=== PATIENT | female | born 1970 | race Two or more races ===

== ENCOUNTER → 2025-02-05 | Emergency (ER) | payer OTHER ==
[~2025-02-05] VITALS: Ht 167.6 cm; Wt 67.1 kg
[~2025-02-05] MED LIST: ALBUTEROL0.63 MG/3 IH; AMITRIPTYLINE100 MG; AMITRIPTYLINE100 MG PO; CEPHALEXIN500 MG PO; CLONAZEPAM0.5 M1 PO; CLONAZEPAM0.5 MG PO; COLACE100 MG PO; ENALAPRIL MALEAT5 MG PO; JANUMET 50-5001 EACH PO; KETO10TA2 PO; KETOROLAC TROMETHAMINE 60 MG VIAL IM STA; NAPROXEN375 MG PO; PROAIR RESPICL90 MCG; RESTORIL30 M1 PO; RESTORIL30 MG PO; TETANUS & DIPHTHERIA TOX,ADULT 0.5 ML VIAL IM STA; ULTRACET PO; ZANTAC150 MG PO
[2025-02-05 07:15] VITALS: BP 126/70; O2SAT 98
== END | disposition home or self-care (01) ==
LOC: ER 04:51
DX: S89.82XA Other specified injuries of left lower leg, initial encounter (principal); W01.0XXA Fall on same level from slipping, tripping and stumbling without subsequent striking against object, initial encounter; Y93.89 Activity, other specified; Y92.89 Other specified places as the place of occurrence of the external cause; S89.81XA Other specified injuries of right lower leg, initial encounter; S79.811A Other specified injuries of right hip, initial encounter; S99.812A Other specified injuries of left ankle, initial encounter; J45.909 Unspecified asthma, uncomplicated; E11.9 Type 2 diabetes mellitus without complications; Z79.84 Long term (current) use of oral hypoglycemic drugs; M77.32 Calcaneal spur, left foot

== ENCOUNTER 2025-03-22 15:50 | Emergency (ER) | payer OTHER ==
[~2025-03-22] VITALS: Ht 167.6 cm; Wt 63.5 kg
[~2025-03-22 15:50] MED LIST changes: -KETOROLAC TROMETHAMINE 60 MG VIAL IM STA; -TETANUS & DIPHTHERIA TOX,ADULT 0.5 ML VIAL IM STA
[2025-03-22] MEDS ORDERED: ORPHENADRINE CITRATE 30 MG/ML AMPUL IM ONE (17:30)
[2025-03-22] MEDS ORDERED: ACETAMINOPHEN 500 MG GEL..CAP PO ONE ×2 (17:30→18:22)
[2025-03-22] MEDS ORDERED: ORPHENADRINE CITRATE 30 MG/ML AMPUL ONE (18:22)
== END 2025-03-22 21:08 ==
LOC: ER 15:51
DX: S82.52XA Displaced fracture of medial malleolus of left tibia, initial encounter for closed fracture (principal); S82.892A Other fracture of left lower leg, initial encounter for closed fracture; S40.012A Contusion of left shoulder, initial encounter; S09.90XA Unspecified injury of head, initial encounter; W10.8XXA Fall (on) (from) other stairs and steps, initial encounter; Y93.89 Activity, other specified; Y92.59 Other trade areas as the place of occurrence of the external cause; Y99.8 Other external cause status